=== PATIENT | male | born 1985 | race African-American/Black ===

== ENCOUNTER 2016-07-24 12:53 | Emergency (ER) | payer OTHER ==
[~2016-07-24] VITALS: Ht 182.9 cm; Wt 208.7 kg
[2016-07-24] MEDS ORDERED: AMOXICILLIN500 M2 PO (16:04)
[2016-07-24] MEDS ORDERED: BACTRIM DS TAB1 EACH PO (16:04)
--- NOTE | 2016-07-24 16:04 | ED SKIN/ALLERGY COMPLAINT ---
History of Present Illness General Chief Complaint: Skin Rash/ Abcess Stated Complaint: ABCESS Source: patient Exam Limitations: no limitations Vital Signs & Intake/Output Vital Signs & Intake/Output Vital Signs Date Time Temp Pulse Resp B/P Pulse O2 O2 Flow FiO2 Ox Delivery Rate 07/24 1716 97.1 90 18 148/80 96 Room Air 07/24 1259 96.7 94 18 97 Room Air Allergies Coded Allergies: No Known Allergies (07/24/16) Reconcile Medications Amoxicillin 500 MG CAPSULE 1 CAP PO TID INFECTION Sulfamethoxazole/Trimethoprim (Bactrim Ds Tablet) 800 MG-160 MG TABLET 1 TAB PO BID ABSCESS Triage Note: 31 Y/O MALE C/O MULTIPLE ABCESSES (ONE ON L ARM, ONE ON L LEG) X 2 DAYS. STATES HIS SISTER "HAD THE SAME PROBLEM AND THEY SENT HER TO A SKIN DOCTOR; TOLD HER IT WAS ALLERGIES". PT HAS RAISED CIRCULAR AREA TO L FOREARM WITH HARDENED CENTER. NO DRAINAGE NOTED THOUGH STATES IT IS DRAINING "PUS". SITE ON L LEG NOT VISUALIZED IN TRIAGE. AFEBRILE. Triage Nurses Notes Reviewed? yes HPI: 31-year-old male with complaints of abscess to multiple locations for the last 2 days. Right forearm, left forearm and left posterior thigh region. The left posterior thigh region is most significant area, is red swollen painful and tender, throbbing and moderate symptoms. He is getting discharge from both forearm abscesses spontaneously. He has no history of abscess. No fever no flulike illness, no history of diabetes. Past History Travel History Traveled to [place] past 21 day No Medical History Any Pertinent Medical History? 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 No Review of Systems Review of Systems Constitutional: Reports: see HPI. EENTM: Reports: no symptoms. Respiratory: Reports: no symptoms. Cardiovascular: Reports: no symptoms. GI: Reports: no symptoms. Genitourinary: Reports: no symptoms. Musculoskeletal: Reports: no symptoms. Skin: Reports: see HPI. Neurological/Psychological: Reports: no symptoms. Hematologic/Endocrine: Reports: no symptoms. Immunologic/Allergic: Reports: no symptoms. All Other Systems: Reviewed and Negative Physical Exam Physical Exam General Appearance: well developed/nourished Comments: Well-developed well-nourished no apparent distress. HEENT: Atraumatic, extraocular motion intact Neck: Supple, no lymphadenopathy Back: Nontender Respiratory: No respiratory distress Extremities: No edema, full range of motion Right ulnar aspect forearm with a 2 cm area of induration and erythema with a scab over top. Mild warmth and tenderness. Left ulnar aspect forearm with a 3 x 4 cm area of induration and erythema with scattered over top. Mild warmth and tenderness. No fluctuance. Left posterior thigh with a 4 x 5 cm area of swelling erythema induration and moderate tenderness. Neuro: Alert and oriented x3 Psych: Mood affect normal, normal memory normal judgment. Skin: Warm and dry, no rash on exposed skin Progress Differential Diagnosis: abscess/cellulitis, allergic reaction, contact dermatitis, erythema multiforme, meningitis/sepsis, urticaria Plan of Care: Orders Procedure Date/time Status EXTREMETIES CULTURE 07/24 1553 Active Laboratory Tests 07/24/16 1649: Sodium Cancelled, Potassium Cancelled, Chloride Cancelled, Carbon Dioxide Cancelled, Anion Gap Cancelled, BUN Cancelled, Creatinine Cancelled, BUN/ Creatinine Ratio Cancelled, Glucose Cancelled, Calcium Cancelled, Total Bilirubin Cancelled, AST Cancelled, ALT Cancelled, Alkaline Phosphatase Cancelled, Total Protein Cancelled, Albumin Cancelled, Globulin Cancelled, Albumin/Globulin Ratio Cancelled, CBC w Diff Cancelled, WBC Cancelled, RBC Cancelled, Hgb Cancelled, Hct Cancelled, MCV Cancelled, MCH Cancelled, RDW Cancelled, Plt Count Cancelled, MPV Cancelled, PUBS MCHC Cancelled Microbiology 07/24 1630 EXTREMITIE: Culture & Sensitivity - RECD 07/24 163 EXTREMITIE: Gram Stain - RECD Comments: We'll treat with antibiotics, the only area that needs I&D at this time is a left posterior thigh. The other areas have drained spontaneously and have only mild erythema and induration without any fluctuance. He should return if he is not feeling better in the next 3-5 days Departure Departure Disposition: HOME OR SELF CARE Condition: Stable Clinical Impression Primary Impression: Abscess of left thigh Referrals: JAYA LEIGH MD Additional Instructions: Take antibiotics as directed for infection Warm compresses and warm soaks Return to the ER with worsening signs of infection such as redness swelling , pain fever or flulike illness. Departure Forms: Customer Survey General Discharge Information Prescriptions: Current Visit Scripts Amoxicillin 1 CAP PO TID #30 CAP Sulfamethoxazole/Trimethoprim (Bactrim Ds Tablet) 1 TAB PO BID #20 TAB Procedures Incision and Drainage Site: LEFT POSTERIOR THIGH Blade Size: 15 I & D Procedure: Yes: betadine prep, sterile drapes applied, sterile dressing applied. No: wick placed. Progress: Injected with 5 mL of lidocaine 2% without epinephrine the left posterior thigh. 15 blade scalpel, small amount of purulent discharge and mild bloody thick discharge expressed. Irrigated, broken up with a Karine clamp, sterile dressing applied. Patient tolerated well without complications
[2016-07-24 17:16] VITALS: BP 148/80
== END 2016-07-24 17:17 ==
LOC: ERH 12:53
DX: L02.415 Cutaneous abscess of right lower limb (principal); I10 Essential (primary) hypertension; I50.9 Heart failure, unspecified
CPT/HCPCS: 87184; 87070; 87147

== ENCOUNTER 2016-09-07 08:10 | Emergency (ER) | payer OTHER ==
[~2016-09-07] VITALS: Ht 180.3 cm; Wt 204.1 kg
[~2016-09-07 08:10] MED LIST: AMOXICILLIN500 M2 PO; BACTRIM DS TAB1 EACH PO
[2016-09-07 08:17] VITALS: BP 164/117
--- NOTE | 2016-09-07 08:33 | ED SKIN/ALLERGY COMPLAINT ---
History of Present Illness General Chief Complaint: General Adult Stated Complaint: NVD Source: patient, old records Exam Limitations: no limitations Vital Signs & Intake/Output Vital Signs & Intake/Output Vital Signs Date Time Temp Pulse Resp B/P Pulse O2 O2 Flow FiO2 Ox Delivery Rate 09/07 0836 Room Air Room Air 09/07 0817 97.3 86 18 164/117 98 Room Air Allergies Coded Allergies: No Known Allergies (07/24/16) Reconcile Medications Amoxicillin 500 MG CAPSULE 1 CAP PO TID INFECTION Cephalexin (Keflex) 500 MG CAPSULE 1 CAP PO TID cellulitis Ondansetron (Zofran Odt) 4 MG TAB.RAPDIS 1 TAB SL TID PRN nausea Sulfamethoxazole/Trimethoprim (Bactrim Ds Tablet) 800 MG-160 MG TABLET 1 TAB PO BID ABSCESS Triage Note: PT HAS ABCESS TO LEFT BUTTOCKS, PT STATES THIS STARTED A FEW DAYS AGO. PT DENIES FEVERS BUT STATES HE DOES HAVE NAUSEA Triage Nurses Notes Reviewed? yes Onset: Gradual Duration: day(s): (4), constant Timing: recent history Severity: mild, moderate Severity Numbers: 5 Location: extremities Possible Factors: no cause identified No Modifying Factors: none Associated Symptoms: nausea HPI: 31-year-old male with no medical history presents complaining of abscess to his left buttocks that he states began approximate 4-5 days ago. He denies any known injury trauma or insect bite. Patient reports history of similar symptoms in the past regarding incision and drainage. He states that the abscess has made him nauseous however denies vomiting. No abdominal pain active pain urinary symptoms or fever no chills. He has not taken anything for pain she has mild aching nonradiating Past History Travel History Traveled to [place] past 21 day No Medical History Any Pertinent Medical History? 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 No Review of Systems Review of Systems Constitutional: Reports: see HPI. All Other Systems: Reviewed and Negative Comments Review of systems: See HPI, All other systems negative. Constitutional, no chills no fever, no malaise HEENT: No visual changes no sore throat no congestion, Cardiovascular: No chest pain , no palpitation Skin, see hpi Respiratory: No dyspnea no cough no sputum GI: No nausea no vomiting, no diarrhea, : No dysuria Muscle skeletal: No joint pain, no joint swelling, no back pain, no neck pain, Neurologic: No numbness , no headache Psych: No stress Heme/endocrine: No bruising no bleeding Immunology: No lymphadenopathy Physical Exam Physical Exam General Appearance: well developed/nourished, alert, awake Comments: Well-developed well-nourished patient in no apparent distress. HEENT: Atraumatic, extraocular motion intact Neck: Supple, FROM Back: FROM, Cardiovascular: Regular rate and rhythms no murmurs rubs or gallops, Respiratory: No respiratory distress. Patient speaking in full complete sentences. Breath sounds clear to auscultation bilaterally: NO W/R/R Extremities: full range of motion Neuro: Alert and oriented x3 Skin: Warm & dry;No appreciable rash on there is a small 1 cm area of induration noted over the left lateral buttock, there is no surrounding erythema fluctuance no discharge elicited nontender Psych: Mood affect normal, normal memory normal judgment. Progress Differential Diagnosis: abscess/cellulitis, allergic reaction, contact dermatitis, drug reaction, lyme disease, shingles, urticaria Plan of Care: Patient reports symptoms are similar to when he required incision and drainage in the past I discussed with him that there is nothing that I feel would be elicited with an incision at this time prescription for Keflex, Zofran provided patient is otherwise resting well and [id number] afebrile he denies nausea answer all his questions he feels comfortable with this plan Departure Departure Time of Disposition: 839 Disposition: HOME OR SELF CARE Condition: Stable Clinical Impression Primary Impression: Abscess Referrals: UNKNOWN (PCP/Family) Additional Instructions: Follow-up with your primary care physician next week. Keflex as directed Zofran for nausea these prescriptions were sent to [facility]. return with any concerns Departure Forms: Customer Survey General Discharge Information Prescriptions: Current Visit Scripts Cephalexin (Keflex) 1 CAP PO TID #21 CAP Ondansetron (Zofran Odt) 1 TAB SL TID PRN nausea #10 TAB
[2016-09-07] MEDS ORDERED: KEFLEX500 M1 PO (08:41)
[2016-09-07] MEDS ORDERED: ZOFRAN ODT4 M1 SL (08:41)
== END 2016-09-07 08:45 ==
LOC: ERH 08:10
DX: L02.31 Cutaneous abscess of buttock (principal)

== ENCOUNTER 2017-09-18 01:40 | Inpatient (IN) | payer OTHER ==
[~2017-09-18] VITALS: Ht 180.3 cm; Wt 188.2 kg
[~2017-09-18 01:40] MED LIST changes: +AMOXICILLIN875 M1 PO; +KEFLEX500 M1 PO; +LASIX20 M1 PO; +LISINOPRIL40 M1 PO; +METOPROLOL SUCC50 M2 PO; +MOBIC15 M1 PO; +PERCOCET 5-3251 EACH PO; +ZOFRAN ODT4 M1 SL
[2017-11-02] MEDS ORDERED: VITAMIN D2000 UNIT PO (20:12)
--- NOTE | 2017-11-06 11:40 | Operative Report ---
Operative/Inv Procedure Report Surgery Date: 11/06/17 Name of Procedure: Laparoscopic Sleeve Gastrectomy Pre-Operative Diagnosis: Morbid Obesity BMI 59, HTN, ABRIL Post-Operative Diagnosis: Same Estimated Blood Loss: less than 50ml Surgeon/Head Of Cytogenetics: Cosme Andres DO Anesthesia: general endotracheal tube IV Fluids: 2000 cc Drains: None Specimens: Stomach Complications: None Condition: Stable Operative Indication: This is a 32-year-old male that presented to the office for workup for bariatric surgery. After appropriate workup was completed I discussed with the patient the band, the sleeve, and the gastric bypass. The patient chose to undergo a sleeve gastrectomy. All risks including but not limited to bleeding, infection, leak, stricture, injury to surrounding bowel/esophagus/stomach/liver/spleen, long-term reflux, DVT/PE, and mortality of 05/999 patients were discussed in detail. The patient understood everything and decided to proceed. Operative/Procedure Note Note: The patient was brought to the operating room and placed on the operating room table in supine position. Venodyne stockings were placed and adequate general endotracheal anesthesia was obtained. The patient was prepped and draped in standard surgical fashion. Began the procedure by making a 2 cm transverse incision supraumbilically and slightly to the left of the midline. Then using a 12 mm clear Visiport and a 10 mm 0 laparoscope, the abdominal cavity was accessed. Great care was taken to go through the anterior rectus sheath, the posterior rectus sheath, and through the peritoneum. Once we entered the peritoneum the abdominal cavity was insufflated to 15 mmHg. Upon initial examination no obvious gross pathology was seen. Accessory trocars were placed, 5 mm in the epigastrium for the Alcira liver retractor. The retractor was inserted and the liver was retracted anteriorly exposing the hiatus, no hiatal hernia was seen. 5 mm ports were placed in the right and left upper quadrant, a 5 mm left lateral port, and a 15 mm right lateral port. Began the procedure by mobilizing the greater curvature of the stomach approximately 7 cm from the pylorus. Once the retrogastric space was reached the whole greater curvature was mobilized maintaining hemostasis using Harmonic scalpel. Full hiatal dissection was performed, no hiatal hernia was seen. Posterior adhesions were taken down using Harmonic scalpel as well. Once the stomach was adequately mobilized a 38 Albanian bougie was inserted and placed along the lesser curvature of the stomach. Once the bougie was in the appropriate position we began creating our sleeve, two 60 mm black staple loads with seamguard followed by three 60 mm purple staple loads with seamguard as well. Great care was taken to leave ample room at the incisura angularis, to prevent any twisting or kinking of the sleeve, to stay lateral to the esophagogastric fat pad, and to do a full fundal excision. At the completion of the staple line the staple line was examined, it appeared intact and no obvious bleeding was noted. The bougie was removed, the sleeve was lying nicely without any twisting or kinking. The resected stomach was removed through the right lateral port site. The port and the left upper quadrant were irrigated until clear. All ports were removed under direct visualization no obvious bleeding was noted. The 15 mm port site fascia was closed using 0 Vicryl suture. The skin was closed using 4-0 Monocryl. Steri-Strips and dressings were placed. The patient was successfully extubated and transferred to the recovery room in stable condition. The patient tolerated the procedure well with no complications. Findings: No hiatal hernia, 38 Fr bougie CC: Luiz Colmenares MD
--- NOTE | 2017-11-06 12:10 | Admission Core Measures ---
Acute Coronary Syndrome (CM) ACS Core Measures Acute Coronary Syndrome Diagnosis No Congestive Heart Failure (NEW) CHF Core Measures Congestive Heart Failure Diagnosis No Cerebrovascular Accident CVA Core Measures CVA/TIA Diagnosis No Venous Thromboembolism VTE Core Adama (View Protocol) VTE Risk Factors Surgery No Mechanical VTE Prophylaxis d/t N/A MechProphylax Ordered No VTE Pharm Prophylaxis d/t NA PharmProphylax ordered Problem List As ranked by this Provider includes Assessment & Plan 1. Morbid obesity with BMI of 50.0-59.9, adult 2. ABRIL (obstructive sleep apnea) 3. HTN (hypertension) HOME MEDS Home Med List Cholecalciferol (Vitamin D3) (Vitamin D) (Unknown Strength) CAPSULE (Unknown Dose) PO DAILY SUPPLEMENT (Reported) Lisinopril 40 MG TABLET 1 TAB PO DAILY HEART (Reported) Metoprolol Succinate 50 MG TAB.ER.24H 1 TAB PO DAILY heart (Reported)
[2017-11-06 14:09] VITALS: BP 122/78
--- NOTE | 2017-11-06 17:24 | PN- Bariatrics ---
Subjective Subjective: POC PT in bed, pain 8/10, very sleepy. No nausea or vomiting. Voiding, no flatus. beltching. has not ambualted yet Deneis CP/SOB Objective Vital Signs and I&Os Vital Signs Date Time Temp Pulse Resp B/P B/P Pulse O2 O2 Flow FiO2 Mean Ox Delivery Rate 11/06 1409 95 Room Air 11/06 1409 97.5 83 17 122/78 95 Room Air Intake & Output 11/06 1600 11/06 0800 11/06 0000 11/05 1600 11/05 0800 11/05 0000 Intake Total Output Total Balance Patient 415 lb Weight Weight Reported by Patient Measurement Method Physical Exam: gen- NAD resp- clear cardiac- RRR abd- obese, soft. minimally tender. dressings clean and dry. ext- no calf tenderness Current Medications: Current Medications Sig/Shirin Start time Last Medication Dose Route Stop Time Status Admin Cefazolin Sodium 3,000 MG IQ8 11/06 1600 AC Sodium Chloride 100 ML IV 11/07 0059 Cefazolin Sodium 3,000 MG ONCE 11/06 0000 DC IV 11/06 2359 Famotidine 20 MG Q12 11/06 2100 AC IV Heparin Sodium 5,000 UNIT Q8 11/06 2200 AC (Porcine) SC Heparin Sodium 0 .STK-MED ONE 11/06 0823 DC (Porcine) .ROUTE Heparin Sodium 5,000 UNIT ONCE 11/06 0000 DC (Porcine) SC 11/06 2359 Hydrocodone Bitart/ 15 ML Q6P PRN 11/06 1415 AC Acetaminophen PO Hydrocodone Bitart/ 30 ML Q6P PRN 11/06 1415 AC Acetaminophen PO Ketorolac 15 MG Q8 11/06 1400 AC Tromethamine IV 11/07 1401 Metoprolol Succinate 50 MG DAILY 11/07 0900 DC PO Metoprolol Succinate 50 MG DAILY 11/07 0900 AC PO Morphine Sulfate 2 MG Q3P PRN 11/06 1415 AC 11/06 IV 1426 Ondansetron HCl 4 MG Q6 11/06 1800 AC IV Potassium Chloride 20 MEQ .Q8H 11/06 1415 AC 11/06 Dextrose/Sodium 1,000 ML IV 1426 Chloride Simethicone 40 MG Q6P PRN 11/06 1415 AC PO Assessment/Plan Assessment/Plan 32yo morbidly obese M SP lap sleeve gastrectomy POD0. stable with no nausea stage 1 bariatric diet tonight npo after midnight for possible upper GI in am prn pain meds and antiemetics dvt ppx- ALPs, lovenox to start in AM dressing change POD2 OOB DC planning Core Measures Venous Thromboembolism VTE Risk Factors Surgery No Mechanical VTE Prophylaxis d/t N/A MechProphylax Ordered No VTE Pharm Prophylaxis d/t NA PharmProphylax ordered
[2017-11-06 19:29] VITALS: BP 142/82
[2017-11-06 21:52] VITALS: BP 118/60
[2017-11-07 06:57] VITALS: BP 122/74
[2017-11-07 07:54] LABS: ABSOLUTE BASOPHIL COUNT 0 /CUMM (0.0-0.2); ABSOLUTE EOSINOPHIL COUNT 0 /CUMM (0.0-0.7); ABSOLUTE LYMPH COUNT 0.8 /CUMM (1.2-3.4); ABSOLUTE MONOCYTE COUNT 0.5 /CUMM (0.10-0.60); BASOPHIL % 0.3 % (0.0-2.0); EOSINOPHIL % 0 % (0-5); HEMATOCRIT 44.8 % (42-52); MEAN CORPUSCULAR HGB 29.3 PG (27.0-31.0); MEAN CORPUSCULAR HGB CONC 34.4 G/DL (33.0-37.0); MEAN CORPUSCULAR VOLUME 85.2 FL (80.0-94.0); MEAN PLATELET VOLUME 10.3 FL (7.4-10.4); RBC DISTRIBUTION WIDTH 14.6 % (11.5-14.5); RED BLOOD CELL CT 5.26 /CUMM (4.70-6.10); WHITE BLOOD CELL COUNT 14.3 /CUMM (4.8-10.8)
--- NOTE | 2017-11-07 08:15 | PN- Bariatrics ---
See Addendum Subjective Subjective: Patient reports pain is well controlled. Denies nausea or vomiting. Tolerated stage 1 diet last night. Ambulating in the halls. Reports voiding, denies passing flatus. Objective Vital Signs and I&Os Vital Signs Date Time Temp Pulse Resp B/P B/P Pulse O2 O2 Flow FiO2 Mean Ox Delivery Rate 11/07 0841 88 158/94 11/07 0657 98.4 88 18 122/74 95 Room Air 11/06 2217 Room Air Room Air 11/06 2152 98.5 89 18 118/60 96 Room Air 11/06 1929 98.4 89 18 142/82 99 Room Air 11/06 1409 95 Room Air 11/06 1409 97.5 83 17 122/78 95 Room Air Intake & Output 11/07 1600 11/07 0800 11/07 0000 11/06 1600 11/06 0800 11/06 0000 Intake Total 750 990 125 Output Total 300 800 400 Balance 450 190 -275 Intake, IV 750 750 125 Intake, Oral 0 240 Number 0 0 Bowel Movements Output, Urine 300 800 400 Patient 415 lb Weight Weight Reported by Patient Measurement Method Physical Exam: Gen - resting comfortably in nad Cardiac - S1S2 noted Lungs - CTAB Abd - soft, obese, dressing in place, appropriately tender aleksandr-incisionally no rebound or guarding noted Ext - alps in place, no significant edema or calf tenderness Current Medications: Current Medications Sig/Shirin Start time Last Medication Dose Route Stop Time Status Admin Acetaminophen 1,000 MG .STK-MED ONE 11/06 0922 DC IV 11/06 0923 Cefazolin Sodium 3,000 MG IQ8 11/06 1600 DC 11/07 Sodium Chloride 100 ML IV 11/07 0059 0002 Cefazolin Sodium 3,000 MG ONCE 11/06 0000 DC IV 11/06 2359 Dexamethasone 4 MG .STK-MED ONE 11/06 1248 DC IM 11/06 1249 Dexamethasone 4 MG .STK-MED ONE 11/06 1219 DC IM 11/06 1220 Famotidine 20 MG Q12 11/06 2100 AC 11/07 IV 0836 Fentanyl Citrate 250 MCG .STK-MED ONE 11/06 0921 DC IM 11/06 0922 Heparin Sodium 5,000 UNIT Q8 11/06 2200 AC 11/07 (Porcine) SC 0538 Heparin Sodium 5,000 UNIT ONCE 11/06 0000 DC (Porcine) SC 11/06 2359 Hydrocodone Bitart/ 15 ML Q6P PRN 11/06 1415 AC 11/07 Acetaminophen PO 0701 Hydrocodone Bitart/ 30 ML Q6P PRN 11/06 1415 AC Acetaminophen PO Hydromorphone HCl 2 MG .STK-MED ONE 11/06 1341 DC IM 11/06 1342 Hydromorphone HCl 2 MG .STK-MED ONE 11/06 1239 DC IM 11/06 1240 Hydromorphone HCl 2 MG .STK-MED ONE 11/06 1214 DC IM 11/06 1215 Hydromorphone HCl 2 MG .STK-MED ONE 11/06 0921 DC IM 11/06 0922 Ketorolac 15 MG Q8 11/06 1400 AC 11/07 Tromethamine IV 11/07 1401 0538 Metoclopramide HCl 10 MG .STK-MED ONE 11/06 1340 DC IM 11/06 1341 Metoprolol Succinate 50 MG DAILY 11/07 0900 DC PO Metoprolol Succinate 50 MG DAILY 11/07 0900 AC 11/07 PO 0841 Midazolam HCl 2 MG .STK-MED ONE 11/06 0922 DC IM 11/06 0923 Morphine Sulfate 2 MG Q3P PRN 11/06 1415 AC 11/07 IV 0327 Ondansetron HCl 4 MG Q6 11/06 1800 AC 11/07 IV 0538 Potassium Chloride 20 MEQ Q8H 11/06 2330 AC 11/07 Dextrose/Sodium 1,000 ML IV 0836 Chloride Potassium Chloride 20 MEQ .Q8H 11/06 1415 DC 11/06 Dextrose/Sodium 1,000 ML IV 1426 Chloride Simethicone 40 MG Q6P PRN 11/06 1415 AC PO Results Last 48 Hours of Labs: Laboratory Tests 11/07 0656 Chemistry Sodium (137 - 145 mmol/L) 140 Potassium (3.5 - 5.1 mmol/L) 4.6 Chloride (98 - 107 mmol/L) 106 Carbon Dioxide (22 - 30 mmol/L) 20 L Anion Gap (5 - 16) 14 Hematology CBC w Diff Pending WBC Pending RBC Pending Hgb Pending Hct Pending MCV Pending MCH Pending MCHC Pending RDW Pending Plt Count Pending MPV Pending Gran % Pending Lymphocytes % Pending Monocytes % Pending Eosinophils % Pending Basophils % Pending Absolute Granulocytes Pending Absolute Lymphocytes Pending Absolute Monocytes Pending Absolute Eosinophils Pending Absolute Basophils Pending Assessment/Plan Assessment/Plan 32 morbidly obese M POD 1 s/p lap sleeve gastrectomy, recovering well, tolerating stage 1 diet Cancel UGI Advance stage 1 diet D/c IVF once adequate oral intake Cont pain regimen prn Home metoprolol on board GI ppx on board Hsq, lovenox if labs ok F/u cbc, lytes ok Lovenox teaching Anticipate d/c later today D/w Dr. Andres Core Measures Venous Thromboembolism VTE Risk Factors Surgery No Mechanical VTE Prophylaxis d/t N/A MechProphylax Ordered No VTE Pharm Prophylaxis d/t NA PharmProphylax ordered
--- NOTE | 2017-11-07 08:56 | Patient Discharge Instructions ---
Discharge Instructions General Discharge Information You were seen/treated for: Morbid obesity, HTN, ABRIL You had these procedures: Laparoscopic Sleeve Gastrectomy on 11/07/17 Watch for these problems: Increased pain, fever, chills, nausea, vomiting, redness, swelling drainage from incisions Do not soak the wound: Yes No bath, but you may shower: Yes Other wound care: Keep incisions clean an dry Ok to shower and remove dressings in 24 hours Allow steri strips to fall off on their own Diet Continue normal diet: No Recommended Diet: Stage 1 bariatric diet Activity Full Activity/No Limits: No Activity Self Limited: Yes Pounds, do NOT lift more than: 10 (x 4 weeks) Other activity limits: No heavy lifting or strenous activity Acute Coronary Syndrome Inclusion Criteria At DC or during hospital stay patient has or had the following: ACS DIAGNOSIS No Discharge Core Measures Meds if any: Prescribed or Continued at Discharge Meds if any: NOT Prescribed or Continued at Discharge Congestive Heart Failure Inclusion Criteria At DC or during hospital stay patient has or had the following: CHF DIAGNOSIS No Discharge Core Measures Meds if any: Prescribed or Continued at Discharge Meds if any: NOT Prescribed or Continued at Discharge Cerebrovascular accident Inclusion Criteria At DC or during hospital stay patient has or had the following: CVA/TIA Diagnosis No Discharge Core Measures Meds if any: Prescribed or Continued at Discharge Meds if any: NOT Prescribed or Continued at Discharge Venous thromboembolism Inclusion Criteria VTE Diagnosis No VTE Type NONE VTE Confirmed by (Test) NONE Discharge Core Measures - Per Current guidelines, there needs to be overlap - treatment for the first 5 days of Warfarin therapy. - If discharged on Warfarin prior to 5 days of - overlap therapy, the patient will need to be - assessed for post discharge needs including - *Post discharge parental anticoagulation - *Warfarin and/or parental anticoagulation education - *Follow up date to check INR post discharge At least 5 days overlap therapy as Inpatient No Meds if any: Prescribed or Continued at Discharge Note: Overlap Therapy is Warfarin and Anticoagulant Meds if any: NOT Prescribed or Continued at Discharge
[2017-11-07 09:12] LABS: GRANULOCYTE % 90.8 % (42.2-75.2); PLATELET COUNT 187 /CUMM (130-400)
[2017-11-07 11:15] VITALS: BP 160/96
--- NOTE | 2017-11-07 11:32 | Surg Short-stay <48hrs Dis Sum ---
Visit Information Visit Dates Admission Date: 11/06/17 Discharge Date: 11/08/17 Surgical Short Stay DC Summary Admission Diagnosis: Morbid Obesity BMI 59, HTN, ABRIL Final Diagnosis: Same s/p laparoscopic sleeve gastrectomy Procedure(s): Laparoscopic Sleeve Gastrectomy Summary/Significant Findings: Patient was admitted to the hospital for an elective laparoscopic sleeve gastrectomy with Dr. Andres. The procedure was tolerated well and patient was transferred to a general surgical floor. Stage 1 bariatric diet was started which patient tolerated. Medical consult obtained on post-op day#1 for ongoing hypertension, despite resuming his 2 home medications. His blood pressure was monitored, and no new medications were started during his hospital stay or when discharged to home. At the time of hospital discharge, the vital signs were stable and pain was controlled with the use of oral pain medications. Condition at Discharge: Stable Discharge Disposition: home or self care Discharge instructions provided to patient/family: Yes Post discharge follow-up plan: one week follow up with follow up with PCP in 1-2 weeks for blood pressure check and management of medications Copies to: Darrian PARKER,Luiz Miller
[2017-11-07 14:13] VITALS: BP 147/101
[2017-11-07 21:59] VITALS: BP 154/106
--- NOTE | 2017-11-07 22:41 | Cons- Medical ---
Lupe PARKER,[facility] 11/07/17 2231: General Information and HPI Consulting Request Date of Consult: 11/07/17 Requested By: Cosme Andres DO Reason for Consult: HTN Source of Information: patient, family, old records Exam Limitations: no limitations History of Present Illness: 32/M with PMHx of morbid obesity, HTN on lisinopril 40mg/D, CHF on metoprolol XL 50 mg/D, ABRIL on CPAP, who was admitted for elective laparoscopic sleeve gastrectomy with Dr. Andres. He is now POD 1 s/p lap sleeve gastrectomy. He is recovering well and able to tolerate oral intake without nausea or vomiting. He is currently reporting 5/10 abdominal pain. A consult was placed for uncontrolled HTN. He reports home blood pressure of 140s/80s. He currently denies CP, SOB, palpitation, or visual change. The pt took his meds on the morning of admission and home meds was continued during this admission. since admission his total intake is 3375ml and total output is 1950ml. He was continued on CPAP during this admission. Allergies/Medications Allergies: Coded Allergies: No Known Drug Allergies (Intermediate, NONE 10/30/17) Home Med List: Cholecalciferol (Vitamin D3) (Vitamin D) (Unknown Strength) CAPSULE (Unknown Dose) PO DAILY SUPPLEMENT (Reported) Lisinopril 40 MG TABLET 1 TAB PO DAILY HEART (Reported) Metoprolol Succinate 50 MG TAB.ER.24H 1 TAB PO DAILY heart (Reported) Review of Systems Review of Systems Constitutional: Denies: chills, diaphoresis, fever, malaise, weakness. EENTM: Denies: visual changes, hearing changes. Cardiovascular: Denies: chest pain, edema, orthopena, palpitations. Respiratory: Denies: cough, hemoptysis, orthopnea, short of breath, sputum production, wheezing. GI: Reports: abdominal pain (5/10). Denies: constipation, diarrhea, distention, melena, nausea, vomiting. Genitourinary: Denies: dysuria, frequency. Musculoskeletal: Denies: no symptoms. Skin: Reports: see HPI. Denies: erythema, rash. Neurological/Psychological: Denies: confusion, headache, numbness, paresthesia, tingling. Past History Travel History Traveled to [place] past 21 day No Medical History Blood Transfusion Hx: No Neurological: NONE EENT: NONE Cardiovascular: CHF, hypertension Respiratory: NONE Gastrointestinal: NONE Hepatic: NONE Renal: NONE Musculoskeletal: NONE Psychiatric: NONE Endocrine: NONE Blood Disorders: NONE Cancer(s): NONE NEURORADIOLOGIST/Reproductive: NONE Other Medical Hx: Obesity Surgical History Surgical History: non-contributory Psychosocial History Where Do You Live? Home Services at Home: None Smoking Status: Never Smoked Exam & Diagnostic Data Last 24 Hrs of Vital Signs/I&O Vital Signs Date Time Temp Pulse Resp B/P B/P Pulse O2 O2 Flow FiO2 Mean Ox Delivery Rate 11/07 2159 98.5 86 12 154/106 95 Room Air 11/07 1413 98.4 82 16 147/101 99 Room Air 11/07 1307 80 164/100 11/07 1115 88 160/96 11/07 0841 88 158/94 11/07 0657 98.4 88 18 122/74 95 Room Air Intake & Output 11/07 1600 11/07 0800 11/07 0000 Intake Total 1020 1000 1115 Output Total 655 070 5337 Balance 570 700 -85 Intake, IV 300 1000 875 Intake, Oral 720 0 240 Number 0 Bowel Movements Output, Urine 441 720 4978 Physical Exam General Appearance: Morbid obese Head: atraumatic, normal appearance Eyes: Bilateral: normal appearance, PERRL, EOMI. Neck: supple, No JVD Respiratory: diffuse decreased air-entry without additional sounds Cardiovascular: regular rate/rhythm, mo MRGs Gastrointestinal: soft, non-tender (around surgical incision) Extremities: no edema Neurologic/Psych: awake, alert, oriented x 3 Cranial Nerves: normal hearing, normal speech, PERRL Skin: intact Last 24 Hrs of Labs/Sean: Laboratory Tests 11/07/17 0656: Anion Gap 14, CBC w Diff NO MAN DIFF REQ, RBC 5.26, MCV 85.2, MCH 29.3, MCHC 34.4, RDW 14.6 H, MPV 10.3, Gran % 90.8 H, Lymphocytes % 5.5 L, Monocytes % 3.4, Eosinophils % 0, Basophils % 0.3, Absolute Granulocytes 13.0 H, Absolute Lymphocytes 0.8 L, Absolute Monocytes 0.5, Absolute Eosinophils 0, Absolute Basophils 0 Assessment/Plan Assessment/Plan 32/M with PMHx of morbid obesity, HTN on lisinopril 40mg/D, CHF on metoprolol XL 50 mg/D, ABRIL on CPAP, POD 1 s/p lap sleeve gastrectomy. He was given lisinopril around 2 pm. His blood pressure reported to be borderline elevated at home even while on lisinopril. His current uncontrolled BP possible 2/2 fluid and pain. I would hold given any extra antihypertensive for now and watch overnight. He was on pain when i saw him but now improved down to 0/10. Blood pressure will most likely improves few hours after pain is contolled, if not we will add one more antiHTN meds. Plan * Continue current pain meds. * DC all fluid, given that he tolerate oral intake * Check BEP in AM for renal function * If blood pressure persist after pt goes to sleep, add 12.5 mg of HCTZ * Continue CPAP and involve TRC to check adequate pressure support Problem List: 1. HTN (hypertension) 2. Morbid obesity with BMI of 50.0-59.9, adult Consult Acknowledgment - Thank you for your consult request. Franky Chan 11/08/17 0501: Assessment/Plan Consult Acknowledgment - Thank you for your consult request. Attending MD Review Statement Attending Statement Attending MD Statement: examined this patient, discuss w/resident/PA/SUPERVISOR CORE DRILLING, agreed w/resident/PA/SUPERVISOR CORE DRILLING, reviewed EMR data (avail), reviewed images, amended to note Attending Assessment/Plan: Reason of consult: High blood pressure 32-year-old male with past medical history significant for morbid obesity, hypertension, congestive heart failure, ABRIL was admitted in ER for laparoscopic sleeve gastrectomy postop day 1. Patient's blood pressure was elevated up to 164 /100 persistently so we were called for evaluation for blood pressure. Patient received all his regular antihypertensives yesterday. After that patient underwent procedure and he was started on IV fluids. Even though he received gentle hydration with normal saline, it could cause high blood pressure does IV fluids were discontinued. His diet was already advanced. This is lisinopril was restarted and was given around 2 PM. Still in evening his blood pressure was 154 /106. I personally went and checked his blood pressure with the BP cuff. BP cuff is not functioning appropriately when I checked it. Thus accurate reading could not be obtained. Feedings are being obtained from forearm blood pressure with smaller cuff. Additionally postop stress/anxiety, pain could be adding up to elevated blood pressure. At this point it may not be appropriate to start any additional agent, we will suggest to continue lisinopril and metoprolol at home doses, continue to monitor blood pressure, if persistently elevated tomorrow then patient may be started on low dose hydrochlorothiazide. Adequate pain control. Continue nighttime CPAP. Appreciate consult, we will follow along.
[2017-11-08 00:10] VITALS: BP 144/96
[2017-11-08 06:09] VITALS: BP 154/72
[2017-11-08] MEDS ORDERED: PERCOCET 5-3251 EACH PO (08:40)
[2017-11-08] MEDS ORDERED: LOVENOX40 MG/0.1 SC (08:40)
[2017-11-08] MEDS ORDERED: PROTONIX40 M3 PO (08:40)
--- NOTE | 2017-11-08 08:48 | PN- Bariatrics ---
Subjective Subjective: Reports pain controlled. Tolerating stage 1 diet. No nausea. Ambulating well. No dizziness. No shortness of breath. No chest pains. Voiding well. Needs lovenox teaching. Seen last night by medical team for ongoing hypertension, but not started on any new meds. Objective Vital Signs and I&Os Vital Signs Date Time Temp Pulse Resp B/P B/P Pulse O2 O2 Flow FiO2 Mean Ox Delivery Rate 11/08 608 97.4 78 18 154/72 97 Room Air 11/08 0010 144/96 11/07 2159 98.5 86 12 154/106 95 Room Air 11/07 1413 98.4 82 16 147/101 99 Room Air 11/07 1307 80 164/100 11/07 1115 88 160/96 Intake & Output 11/08 1600 11/08 0811/08 0000 11/07 1600 11/07 0800 11/07 0000 Intake Total 60 480 1140 1000 1115 Output Total 0 500 032 126 8986 Balance 60 -20 690 700 -85 Intake, IV 300 1000 875 Intake, Oral 60 480 840 0 240 Number 0 0 0 0 Bowel Movements Output, Urine 0 500 [phone] Physical Exam: General - alert & oriented x 3. comfortable. ambulating Lungs - clear bilaterally. no w/r/r. Cardiac - s1s2. reg. Abdomen - soft. dressings c/d/i. expected aleksandr-incisional tenderness. no drains. Extremities - warm bilaterally. no c/c/e. calves soft and nontender b/l. Current Medications: Current Medications Sig/Shirin Start time Last Medication Dose Route Stop Time Status Admin Bisacodyl 10 MG ONCE PRN 11/07 1015 AC AZ Famotidine 20 MG Q12 11/06 2100 AC 11/07 IV 2018 Heparin Sodium 5,000 UNIT Q8 11/06 2200 AC 11/08 (Porcine) SC 0428 Hydrocodone Bitart/ 15 ML Q6P PRN 11/06 1415 AC 11/08 Acetaminophen PO 0428 Hydrocodone Bitart/ 30 ML Q6P PRN 11/06 1415 AC 11/07 Acetaminophen PO 2039 Ketorolac 15 MG Q8 11/06 1400 DC 11/07 Tromethamine IV 11/07 1401 1305 Lisinopril 40 MG DAILY 11/07 1125 AC 11/07 PO 1307 Metoprolol Succinate 50 MG DAILY 11/07 0900 DC PO Metoprolol Succinate 50 MG DAILY 11/07 0900 AC 11/07 PO 0841 Morphine Sulfate 2 MG Q3P PRN 11/06 1415 AC 11/07 IV 0327 Ondansetron HCl 4 MG Q6P PRN 11/07 1833 AC IV Ondansetron HCl 4 MG Q6 11/06 1800 DC 11/07 IV 1111 Patient Medication 1 ED ONE ONE 11/07 1645 DC 11/07 Teaching ED 11/07 1646 2021 Polyethylene Glycol 17 GM DAILY PRN 11/07 1015 AC PO Potassium Chloride 20 MEQ Q8H 11/06 2330 DC 11/07 Dextrose/Sodium 1,000 ML IV 0836 Chloride Simethicone 40 MG Q6P PRN 11/06 1415 AC PO Results Last 48 Hours of Labs: Laboratory Tests 11/08 11/07 0746 0656 Chemistry Sodium (137 - 145 mmol/L) Pending 140 Potassium (3.5 - 5.1 mmol/L) Pending 4.6 Chloride (98 - 107 mmol/L) Pending 106 Carbon Dioxide (22 - 30 mmol/L) Pending 20 L Anion Gap (5 - 16) Pending 14 BUN Pending Creatinine Pending BUN/Creatinine Ratio Pending Hematology CBC w Diff NO MAN DIFF REQ WBC (4.8 - 10.8 /CUMM) 14.3 H RBC (4.70 - 6.10 /CUMM) 5.26 Hgb (14.0 - 18.0 G/DL) 15.4 Hct (42 - 52 %) 44.8 MCV (80.0 - 94.0 FL) 85.2 MCH (27.0 - 31.0 PG) 29.3 MCHC (33.0 - 37.0 G/DL) 34.4 RDW (11.5 - 14.5 %) 14.6 H Plt Count (130 - 400 /CUMM) 187 MPV (7.4 - 10.4 FL) 10.3 Gran % (42.2 - 75.2 %) 90.8 H Lymphocytes % (20.5 - 51.1 %) 5.5 L Monocytes % (1.7 - 9.3 %) 3.4 Eosinophils % (0 - 5 %) 0 Basophils % (0.0 - 2.0 %) 0.3 Absolute Granulocytes (1.4 - 6.5 /CUMM) 13.0 H Absolute Lymphocytes (1.2 - 3.4 /CUMM) 0.8 L Absolute Monocytes (0.10 - 0.60 /CUMM) 0.5 Absolute Eosinophils (0.0 - 0.7 /CUMM) 0 Absolute Basophils (0.0 - 0.2 /CUMM) 0 Assessment/Plan Assessment/Plan This 32 year old male with hx morbid obesity (BMI 59), HTN, and ABRIL, POD#2 s/p lap sleeve gastrectomy, ongoing hypertension with continuation of his 2 home meds tolerating stage 1 diet pain controlled continue bp meds f/u medical consult prior to discharge home today needs lovenox teaching today prior to d/c home hep sc - dvt ppx pepcid iv - gi ppx d/c home today after f/u medical team will d/w Core Measures Venous Thromboembolism VTE Risk Factors Surgery No Mechanical VTE Prophylaxis d/t N/A MechProphylax Ordered No VTE Pharm Prophylaxis d/t NA PharmProphylax ordered
[2017-11-08 09:01] VITALS: BP 132/82
== END 2017-11-08 11:35 | DRG 403 ==
LOC: SDA 01:40 → UNDOADMIN 01:40 → SDA 11-06 02:03 → ENRESERV 11-06 12:35 → ENTRNSPT 11-06 13:53 → EDTRNSPTSTS 11-06 13:58 → 2NB 11-06 14:09 → CMPTRNSPT 11-06 14:24 → ENPENDDIS 11-08 08:51 → 2NB 11-08 11:35
PROVIDERS: Physician Assistant Surgical
PROC: 0DB64Z3 Excision of Stomach, Percutaneous Endoscopic Approach, Vertical (ICD-10-PCS; principal; 2017-11-06)
DX: E66.01 Morbid (severe) obesity due to excess calories (principal); Z68.43 Body mass index [BMI] 50.0-59.9, adult; I10 Essential (primary) hypertension; G47.33 Obstructive sleep apnea (adult) (pediatric)
CPT/HCPCS: 2NBP; SDA; 36592; 82436; 88307; J0131; J0690; J1100; J1644; J2405; J2765; J3490; J7042; S5012